=== PATIENT | male | born 1990 | race African-American/Black ===

== ENCOUNTER 2017-02-19 12:58 | Emergency (ER) | payer SELFPAY ==
[~2017-02-19 12:58] MED LIST: Z.0.NO CURRENT MEDS
[2017-02-19 12:59] VITALS: BP 138/85; PULSE 120; RESP 20; TEMP 97.8; O2SAT 99
== END 2017-02-19 14:11 | disposition left against medical advice (07) ==
LOC: NED 12:58
DX: R36.9 Urethral discharge, unspecified (principal); Z53.21 Procedure and treatment not carried out due to patient leaving prior to being seen by health care provider
CPT/HCPCS: 99281

== ENCOUNTER 2017-02-19 15:14 | Emergency (ER) | payer SELFPAY ==
[~2017-02-19] VITALS: Ht 177.8 cm; Wt 87.0 kg
[2017-02-19 15:22] VITALS: BP 120/88; PULSE 116; RESP 18; TEMP 98.9; O2SAT 98
--- NOTE | 2017-02-19 16:32 | PD ---
HPI . Penile discharge Chief Complaint: Complaint Time Seen by Provider: 16:25 Travel History International Travel<30 days: No Contact w/Intl Traveler<30days: No Traveled to known affect area: No History of Present Illness HPI Patient presents with a 2 day history of penile discharge. He describes it as milky. He states that he also has some dysuria. PFSH Past Medical History Medical History: Denies Significant Hx Diminished Hearing: No Influenza Vaccination: No Past Surgical History Surgical History: No Previous Surgery Social History Alcohol Use: No Tobacco Use: Yes (/2 PPD) Substance Use: No Allergies-Medications (Allergen,Severity, Reaction): Coded Allergies: No Known Allergies (Verified , 02/19/17) Reported Meds & Prescriptions Reported Meds & Active Scripts Active No Active Prescriptions or Reported Medications Review of Systems Except as stated in HPI: all other systems reviewed are Neg General / Constitutional: No: Fever, Chills Gastrointestinal: No: Nausea, Vomiting Genitourinary: Positive: Dysuria, Discharge, No: Urgency, Frequency Physical Exam Narrative GENERAL: Awake and alert and in no acute distress. SKIN: Warm and dry. CARDIOVASCULAR: Regular rate and rhythm. RESPIRATORY: No accessory muscle use. MUSCULOSKELETAL: No obvious deformities. No edema. NEUROLOGICAL: Awake and alert. No obvious cranial nerve deficits. Motor grossly within normal limits. Normal speech. PSYCHIATRIC: Appropriate mood and affect; insight and judgment normal. Data Data Last Documented VS Vital Signs Date Time Temp Pulse Resp B/P Pulse Ox O2 Delivery O2 Flow Rate FiO2 02/19/17 15:22 98.9 116 18 120/88 98 MDM Medical Decision Making Medical Screen Exam Complete: Yes Emergency Medical Condition: Yes Differential Diagnosis Differential diagnosis includes but is not limited to UTI, hematuria, yeast infection, STD Narrative Course Patient presents with a milky white penile discharge. He will be treated presumptively for chlamydia and gonorrhea. Diagnosis Primary Impression: Urethritis Patient Instructions: Chlamydia (DC), General Instructions, Gonorrhea (DC) Scripts No Active Prescriptions or Reported Meds Disposition: 01 DISCHARGE HOME Condition: Stable Rea Crystal MD Feb 19, 2017 16:31
[2017-02-19] MEDS ORDERED: AZITHROMYCIN 600 MG TAB PO ONE (16:45)
[2017-02-19] MEDS ORDERED: AZITHROMYCIN 250 MG TAB PO ONE ×2 (16:45)
[2017-02-19] MEDS ORDERED: cefTRIAXone 250 MG VIAL IM ONE (16:45)
[2017-02-19] MEDS ORDERED: LIDOCAINE HCL 1% 50 ML VIAL XX ONE (16:45)
[2017-02-19 22:32] LABS: CHLAMYDIA PCR DETECTED (NOT DETECT); NEISSERIA PCR DETECTED (NOT DETECT)
== END 2017-02-19 17:05 | disposition home or self-care (01) ==
LOC: PHED 15:14
DX: N34.2 Other urethritis (principal)
CPT/HCPCS: 87491; 87591; 96372; 99283; J0696

== ENCOUNTER 2018-04-14 05:37 | Observation (INO) | payer SELFPAY ==
[~2018-04-14] VITALS: Ht 177.8 cm; Wt 112.6 kg
[2018-04-14 05:39] VITALS: BP 155/84; PULSE 79; RESP 20; TEMP 98.1; O2SAT 97
[2018-04-14] MEDS ORDERED: METOCLOPRAMIDE HCL 10 MG/2 ML VIAL IV PUSH ONE (06:00)
[2018-04-14] MEDS ORDERED: SODIUM CHLOR 0.9% 1000 ML INJ 1,000 ML IV ONE (06:00)
[2018-04-14 06:24] LABS: AUTOMATED NEUTROPHIL # 8.3 TH/MM3 (1.8-7.7); BASOPHIL # 0.1 TH/MM3 (0-0.2); BASOPHIL % 0.5 % (0.0-2.0); EOSINOPHIL # 0.1 TH/MM3 (0-0.4); EOSINOPHIL % 0.8 % (0.0-4.0); HEMATOCRIT 46.6 % (39.0-51.0); HEMOGLOBIN 15.7 GM/DL (13.0-17.0); LYMPH % 30.5 % (9.0-44.0); LYMPHOCYTE # 4.1 TH/MM3 (1.0-4.8); MEAN CELL VOLUME 95.1 FL (80.0-100.0); MEAN CORPUSCULAR HGB CONC 33.7 % (32.0-36.0); MEAN PLATELET VOLUME 8.2 FL (7.0-11.0); MONO % 6.9 % (0.0-8.0); MONOCYTE # 0.9 TH/MM3 (0-0.9); NEUT % 61.3 % (16.0-70.0); PLATELET COUNT 291 TH/MM3 (150-450); WHITE BLOOD COUNT 13.6 TH/MM3 (4.0-11.0)
[2018-04-14 06:45] LABS: ALKALINE PHOSPHATASE 94 U/L (45-117); TOTAL BILIRUBIN ADULT 0.7 MG/DL (0.2-1.0); TOTAL PROTEIN 7.6 GM/DL (6.4-8.2)
[2018-04-14 06:48] LABS: ALBUMIN 3.7 GM/DL (3.4-5.0); ALT (GPT) 30 U/L (12-78); AST (GOT) 27 U/L (15-37); BICARBONATE 23.6 MEQ/L (21.0-32.0); BLOOD UREA NITROGEN 8 MG/DL (7-18); CALCIUM 9.1 MG/DL (8.5-10.1); CHLORIDE 104 MEQ/L (98-107); GLOMERULAR FILTRATION RATE 87 ML/MIN (>89); GLUCOSE,RANDOM 109 MG/DL (74-106); SODIUM (NA) 138 MEQ/L (136-145)
[2018-04-14] MEDS ORDERED: IOHEXOL 350 MG/ML 10 ML VIAL (for RAD DIAG) IVCONTRAST ONE (07:30)
--- NOTE | 2018-04-14 07:59 | RADRPT ---
EXAM DATE: 04/14/2018 7:50 AM EDT AGE/SEX: 27 years / Male INDICATIONS: Diffuse abdomen pain today. CLINICAL DATA: This is the patient's initial encounter. Patient reports that signs and symptoms have been present for 1 day and indicates a pain score of 8/10. MEDICAL/SURGICAL HISTORY: None. None. ORAL CONTRAST: No oral contrast ingested. RADIATION DOSE: 16.73 CTDI (mGy) COMPARISON: No prior [place] exams available for comparison. TECHNIQUE: Multiple contiguous axial images were obtained through the abdomen and pelvis following b olus infusion of 97 ml Omnipaque 350 (iohexol) nonionic water-soluble contrast as a single exam dos e. No oral contrast ingested. Using automated exposure control and adjustment of the mA and/or kV ac cording to patient size, the radiation dose was kept as low as reasonably achievable to obtain optima l diagnostic quality images. FINDINGS: Lower Lungs: The visualized lower lungs are clear. Liver: The liver has a homogeneous density. There is a 1.8 cm cyst in the right lobe of the liver adj acent to the gallbladder. The gallbladder is unremarkable.. There is no dilation of the biliary tree. Spleen: Homogeneous density without enlargement. Pancreas: Unremarkable without mass or calcification. Kidneys: Normal in size and shape. No evidence of mass or hydronephrosis. Adrenal Glands: Unremarkable. Aorta: The aorta and proximal iliac vessels are grossly unremarkable without aneurysmal dilation. Bowel/Mesentery: The bowel gas pattern is within normal limits. There is diffuse dilatation of the a ppendix measuring 1.2 cm surrounded by inflammatory changes in the mesenteric fat. There is a 7 mm ca lcified appendicolith in the appendix. No free fluid or loculated fluid collections are seen at this time to suggest an abscess.. No free air is seen at this time. These findings are consistent with acu te appendicitis. Abdominal Wall: Intact. Retroperitoneum: No evidence of adenopathy in the retrocrural, para-aortic, or deep pelvic regions. Bladder: Contours are smooth. Reproductive Organs: No abnormal masses or calcifications seen. Inguinal: The inguinal region is unremarkable without evidence of adenopathy. Bony Structures: Unremarkable. CONCLUSION: 1. Acute appendicitis. 2. 1.8 cm benign-appearing right hepatic cyst. Electronically signed by: Jose Rosas MD 04/14/2018 7:58 AM EDT
--- NOTE | 2018-04-14 08:00 | PD ---
HPI Chief Complaint: Abdominal Pain Time Seen by Provider: 06:08 Travel History International Travel<30 days: No Contact w/Intl Traveler<30days: No Traveled to known affect area: No History of Present Illness HPI 27-year-old male chief complaint of abdominal pain and vomiting. Patient states that his symptoms began yesterday he developed lower abdominal pain and "a little vomiting" When clarified he states that he vomited one time at home and that was several hours prior to his arrival. No prior episodes. No diarrhea. No sick contacts or others at home with similar symptoms. The patient did not attempt any [id number] remedies. After several hours of discomfort he decided to call 911 to be seen in the ER. [facility] Past Medical History Medical History: Denies Significant Hx Diminished Hearing: No Tetanus Vaccination: Never Vaccinated Influenza Vaccination: No Past Surgical History Surgical History: No Previous Surgery Social History Alcohol Use: No Tobacco Use: Yes (11/20 PPD) Substance Use: No Allergies-Medications (Allergen,Severity, Reaction): Coded Allergies: No Known Allergies (Verified , 02/19/17) Reported Meds & Prescriptions Reported Meds & Active Scripts Active No Active Prescriptions or Reported Medications Review of Systems Except as stated in HPI: all other systems reviewed are Neg General / Constitutional: No: Fever, Chills Gastrointestinal: Positive: Nausea, Vomiting, Abdominal Pain, No: Diarrhea Physical Exam Narrative GENERAL: 27-year-old male in mild distress secondary to pain SKIN: Focused skin assessment warm/dry. HEAD: Atraumatic. Normocephalic. EYES: Pupils equal and round. No scleral icterus. No injection or drainage. ENT: No nasal bleeding or discharge. Mucous membranes pink and moist. NECK: Trachea midline. CARDIOVASCULAR: Regular rate and rhythm. No murmur appreciated. RESPIRATORY: No accessory muscle use. Clear to auscultation. Breath sounds equal bilaterally. GASTROINTESTINAL: Nonlocalizing tenderness however he seems to be most tender in the right lower quadrant. MUSCULOSKELETAL: No obvious deformities. No clubbing. No cyanosis. No edema. Data Data Last Documented VS Vital Signs Date Time Temp Pulse Resp B/P (MAP) Pulse Ox O2 Delivery O2 Flow Rate FiO2 04/14/18 05:39 98.1 79 20 155/84 (107) 97 Orders Orders Complete Blood Count With Diff (04/14/18 06:00) Comprehensive Metabolic Panel (04/14/18 06:00) Lipase (04/14/18 06:00) Ct Abd/Pel W Iv Contrast(Rout) (04/14/18 ) Metoclopramide Inj (Reglan Inj) (04/14/18 06:00) Sodium Chlor 0.9% 1000 Ml Inj (Ns 1000 M (04/14/18 06:00) Iohexol 350 Inj (Omnipaque 350 Inj) (04/14/18 07:30) Piperacil-Tazo 3.375 Gm Premix (Zosyn 3. (04/14/18 08:15) Sodium Chlor 0.9% 1000 Ml Inj (Ns 1000 M (04/14/18 08:15) Admit Order (Ed Use Only) (04/14/18 ) Labs Laboratory Tests Test 04/14/18 06:04 White Blood Count 13.6 TH/MM3 Red Blood Count 4.90 MIL/MM3 Hemoglobin 15.7 GM/DL Hematocrit 46.6 % Mean Corpuscular Volume 95.1 FL Mean Corpuscular Hemoglobin 32.0 PG Mean Corpuscular Hemoglobin Concent 33.7 % Red Cell Distribution Width 14.0 % Platelet Count 291 TH/MM3 Mean Platelet Volume 8.2 FL Neutrophils (%) (Auto) 61.3 % Lymphocytes (%) (Auto) 30.5 % Monocytes (%) (Auto) 6.9 % Eosinophils (%) (Auto) 0.8 % Basophils (%) (Auto) 0.5 % Neutrophils # (Auto) 8.3 TH/MM3 Lymphocytes # (Auto) 4.1 TH/MM3 Monocytes # (Auto) 0.9 TH/MM3 Eosinophils # (Auto) 0.1 TH/MM3 Basophils # (Auto) 0.1 TH/MM3 CBC Comment AUTO DIFF Differential Comment AUTO DIFF CONFIRMED Blood Urea Nitrogen 8 MG/DL Creatinine 1.20 MG/DL Random Glucose 109 MG/DL Total Protein 7.6 GM/DL Albumin 3.7 GM/DL Calcium Level 9.1 MG/DL Alkaline Phosphatase 94 U/L Aspartate Amino Transf (AST/SGOT) 27 U/L Alanine Aminotransferase (ALT/SGPT) 30 U/L Total Bilirubin 0.7 MG/DL Sodium Level 138 MEQ/L Potassium Level 4.2 MEQ/L Chloride Level 104 MEQ/L Carbon Dioxide Level 23.6 MEQ/L Anion Gap 10 MEQ/L Estimat Glomerular Filtration Rate 87 ML/MIN Lipase 59 U/L [facility] Medical Decision Making Medical Screen Exam Complete: Yes Emergency Medical Condition: Yes Differential Diagnosis Appendicitis, cholecystitis, pancreatitis, ileus, bowel obstruction Narrative Course Patient was seen and evaluated in the emergency department.. He was found to have an acute appendicitis. Patient was signed out at shift change awaiting admission by surgery. Diagnosis Primary Impression: Acute appendicitis Qualified Codes: K35.3 - Acute appendicitis with localized peritonitis Admitting Information Admitting Physician Requests: Admit Scripts No Active Prescriptions or Reported Meds Condition: Stable Christiano Charles DO April 14, 2018 08:00
[2018-04-14] MEDS: SODIUM CHLOR 0.9% 1000 ML INJ 1,000 ML IV SCH ×2 (08:15→17:33)
[2018-04-14] MEDS ORDERED: PIPERACIL-TAZO 3.375 GM PREMIX 50 ML IV ONE (08:15)
--- NOTE | 2018-04-14 08:27 | PD ---
Physical Exam Narrative Patient signed out to me by Dr. Bartlett. Please see his documentation for complete details. Briefly, patient is a 27-year-old male who comes in complaining of abdominal pain that started yesterday. He says the pain is in his right lower quadrant. He did have an episode of vomiting here, and once at home. Exam shows diffuse tenderness to the abdomen, worse in the right lower quadrant. There is no rebound or guarding. Data Data Last Documented VS Vital Signs Date Time Temp Pulse Resp B/P (MAP) Pulse Ox O2 Delivery O2 Flow Rate FiO2 04/14/18 05:39 98.1 79 20 155/84 (107) 97 Orders Orders Complete Blood Count With Diff (04/14/18 06:00) Comprehensive Metabolic Panel (04/14/18 06:00) Lipase (04/14/18 06:00) Ct Abd/Pel W Iv Contrast(Rout) (04/14/18 ) Metoclopramide Inj (Reglan Inj) (04/14/18 06:00) Sodium Chlor 0.9% 1000 Ml Inj (Ns 1000 M (04/14/18 06:00) Iohexol 350 Inj (Omnipaque 350 Inj) (04/14/18 07:30) Piperacil-Tazo 3.375 Gm Premix (Zosyn 3. (04/14/18 08:15) Sodium Chlor 0.9% 1000 Ml Inj (Ns 1000 M (04/14/18 08:15) Admit Order (Ed Use Only) (04/14/18 ) Labs Laboratory Tests Test 04/14/18 06:04 White Blood Count 13.6 TH/MM3 Red Blood Count 4.90 MIL/MM3 Hemoglobin 15.7 GM/DL Hematocrit 46.6 % Mean Corpuscular Volume 95.1 FL Mean Corpuscular Hemoglobin 32.0 PG Mean Corpuscular Hemoglobin Concent 33.7 % Red Cell Distribution Width 14.0 % Platelet Count 291 TH/MM3 Mean Platelet Volume 8.2 FL Neutrophils (%) (Auto) 61.3 % Lymphocytes (%) (Auto) 30.5 % Monocytes (%) (Auto) 6.9 % Eosinophils (%) (Auto) 0.8 % Basophils (%) (Auto) 0.5 % Neutrophils # (Auto) 8.3 TH/MM3 Lymphocytes # (Auto) 4.1 TH/MM3 Monocytes # (Auto) 0.9 TH/MM3 Eosinophils # (Auto) 0.1 TH/MM3 Basophils # (Auto) 0.1 TH/MM3 CBC Comment AUTO DIFF Differential Comment AUTO DIFF CONFIRMED Blood Urea Nitrogen 8 MG/DL Creatinine 1.20 MG/DL Random Glucose 109 MG/DL Total Protein 7.6 GM/DL Albumin 3.7 GM/DL Calcium Level 9.1 MG/DL Alkaline Phosphatase 94 U/L Aspartate Amino Transf (AST/SGOT) 27 U/L Alanine Aminotransferase (ALT/SGPT) 30 U/L Total Bilirubin 0.7 MG/DL Sodium Level 138 MEQ/L Potassium Level 4.2 MEQ/L Chloride Level 104 MEQ/L Carbon Dioxide Level 23.6 MEQ/L Anion Gap 10 MEQ/L Estimat Glomerular Filtration Rate 87 ML/MIN Lipase 59 U/L MDM Supervised Visit with KATHY: No Narrative Course CT of the abdomen pelvis shows acute appendicitis. Patient was given Reglan and Zosyn. Dr. Wen of general surgery called, he will take the patient to the OR. Diagnosis Primary Impression: Appendicitis Qualified Codes: K35.80 - Unspecified acute appendicitis Admitting Information Admitting Physician Requests: Admit Scripts No Active Prescriptions or Reported Meds Ashleigh Rosenberg MD April 14, 2018 08:27
[2018-04-14 08:36] VITALS: BP 145/81; PULSE 83; RESP 18; TEMP 99.3; O2SAT 98
[2018-04-14] MEDS ORDERED: BUPIVACAINE/EPINEPHRINE 0.5% PF 10 ML VIAL ONE (08:45)
[2018-04-14] MEDS ORDERED: ACETAMINOPHEN 1000 MG/100 ML 100 ML IV ONE (09:08)
[2018-04-14] MEDS ORDERED: KETOROLAC TROMETHAMINE 30 MG/ML (IVP) VIAL IVP PRN (10:45)
[2018-04-14] MEDS ORDERED: Post-op Orders (for Pharmacy) XX ONE (10:45)
[2018-04-14] MEDS ORDERED: ONDANSETRON ODT 4 MG TAB PO PRN (10:45)
[2018-04-14] MEDS ORDERED: oxyCODONE/ACETAMINOPHEN 5 MG/325 MG TAB PO PRN (10:45)
[2018-04-14] MEDS ORDERED: MORPHINE SULFATE 4 MG/ML INJ IV PUSH PRN (10:45)
[2018-04-14] MEDS ORDERED: NALOXONE HCL 0.4 MG/ML AMP IV PUSH PRN (10:45)
[2018-04-14] MEDS ORDERED: diphenhydrAMINE HCL 25 MG CAP PO PRN (10:45)
[2018-04-14] MEDS ORDERED: DO NOT ADM ANY ANTICOAGULANT DRUGS PRN (10:51)
[2018-04-14] MEDS: LACTATED RINGER'S 1000 ML INJ 1,000 ML IV SCH ×2 (10:55→17:29)
[2018-04-14] MEDS ORDERED: MIDAZOLAM HCL 2 MG/2 ML VIAL ONE (10:56)
--- NOTE | 2018-04-14 10:57 | MH ---
cc: Rangel Wen MD DATE OF ADMISSION: 04/14/2018 REASON FOR ADMISSION: Appendicitis. HISTORY OF PRESENT ILLNESS: Mr. Lam is a pleasant 27-year-old gentleman, who presented to the emergency department early this morning complaining of right lower quadrant abdominal pain. He states it began yesterday. He had an episode of nausea and vomiting with it. He denied any fever or chills. Pain was mainly in the right lower quadrant. He apparently decided to call 911 and was brought to the emergency department where he was seen, evaluated and worked up. During his workup and evaluation, he was found to have acute appendicitis by history, physical exam, and CT imaging. Surgical consultation was requested. The patient denies previous episodes. The patient denies any chest pain or shortness of breath. The patient reports pain is mainly in the right lower quadrant and is made worse by movement. He denies any subjective fever or chills. PAST MEDICAL HISTORY: None. PAST SURGICAL HISTORY: None. MEDICATIONS: None. ALLERGIES: NONE. SOCIAL HISTORY: He admits to alcohol and cigarette use. FAMILY HISTORY: He denies any family history of appendicitis that he is aware of. REVIEW OF SYSTEMS: Please see HPI. PHYSICAL EXAMINATION: VITAL SIGNS: Temperature is 98, pulse is 80, blood pressure 150/80, respiration rate 20. GENERAL: This is an obese, gentleman, sitting in the hospital bed, appears uncomfortable. HEENT: Pupils equal and reactive to light. Sclerae are white. Oropharynx is clear and moist. NECK: Supple. No masses. LUNGS: Clear to auscultation bilaterally. HEART: S1, S2. No murmur. ABDOMEN: Soft, tender in the right lower quadrant with rebound and guarding. Positive Rovsing sign. Positive psoas sign. EXTREMITIES: Free range of motion x 4. NEUROLOGIC: Alert and oriented x 3. LABORATORY DATA: White blood cell count 13, hemoglobin 15, platelet count is 291. Electrolytes within normal limits. IMAGING STUDIES: CT imaging of the abdomen and pelvis reveals an inflamed retrocecal appendix. IMPRESSION: Acute appendicitis. PLAN: Risks and benefits of immediate appendectomy were discussed with the patient and he is agreeable. Operating room was notified and will ____ ____ him immediately. Rangel MD CHIRAG Waller , 10:40 AM , 10:56 AM
--- NOTE | 2018-04-14 11:05 | MP ---
cc: Rangel Wen MD DATE OF OPERATION: PREOPERATIVE DIAGNOSIS: Acute appendicitis. POSTOPERATIVE DIAGNOSIS: 1. Acute appendicitis. 2. Retrocecal appendix. PROCEDURE PERFORMED: Laparoscopic appendectomy. SURGEON: Rangel Wen MD BACK END DEVELOPER: Janet Hawkins. ANESTHESIA: General endotracheal. COMPLICATIONS: None. INDICATIONS FOR PROCEDURE: Mr. Lam is a pleasant 27-year-old gentleman who presented to the Emergency Department this morning complaining of abdominal pain. He was worked up and found to have appendicitis. Risks and benefits of appendectomy was discussed with him. He is agreeable. DETAILS OF PROCEDURE: The patient was identified, brought to the operating room, placed supine on the operating table. After adequate general endotracheal anesthesia was achieved, the abdomen was prepped and draped in standard surgical fashion. Supraumbilical space was anesthetized with 0.25% Marcaine. Supraumbilical incision was made. Dissection was carried down through subcutaneous tissue to midline fascia. Midline fascia was incised sharply. A finger was then placed in the peritoneal cavity without difficulty. Blunt balloon trocar was inserted, and the abdomen was insufflated to 15 mmHg using CO2 gas. Next, two 5 mm trocars were placed in the lower midline under direct vision. Attention was directed to the right lower quadrant. Appendix was not easily seen. Obviously, the appendix was completely retrocecal. There was a small amount of green fluid down the pelvis, which was suction irrigated out prior to mobilization of the cecum. Attention was directed to the cecum which was grasped. The white line of Toldt was then taken down with Harmonic scalpel rotating the cecum medially and superiorly. Once we did this, we could visualize the appendix. Next, the appendix was carefully dissected out using a combination of blunt hydrodissection and limited Harmonic scalpel dissection. We had to take the appendix down in a retrograde manner. The mesentery was taken down with Harmonic scalpel and then we followed the appendix distally. The appendix was quite inflamed and it was densely adherent to the tissue in the retroperitoneum. Again, using blunt and hydrodissection and limited Harmonic scalpel, we were able to free the appendix up completely. This did take a prolonged amount of time due to the fact that it was very stuck and very inflamed. There was no evidence of gross perforation or abscess. Once we freed the appendix up completely, it was ligated at the base of the cecum using 2-0 PDS Endoloops both proximally and distally. The appendix was then transected, placed into an Endopouch bag and brought out through the supraumbilical port. The appendix was sent to pathology for analysis. Attention was redirected. Posterior surface of the cecum was carefully inspected and there was no evidence of any cecal injury. The appendiceal stump was carefully inspected and the Endoloop tested and there was no evidence of leakage of stool. No bleeding. The abdominal cavity was then rinsed out with 1 liter of warm saline solution. The cecum was returned to its anatomic position in the right lower quadrant. The pelvis was irrigated out as well. Effluent was noted to be clear. All trocars were then removed under direct vision. Midline fascia was repaired with 0 Vicryl in a [id number] fashion. Skin was closed with 4-0 Vicryl. The patient tolerated the procedure well, was awakened and brought to the recovery room in stable condition. MD NAYLA Clinton/LETICIA , 10:43 AM , 11:04 AM
[2018-04-14 12:00] VITALS: BP 105/57; PULSE 66; RESP 17; TEMP 98; O2SAT 98
[2018-04-14] MEDS ORDERED: DEXAMETHASONE SOD PHOS 4 MG/ML VIAL IV ONE (12:02)
[2018-04-14] MEDS ORDERED: PROPOFOL 200 MG/20 ML AMP IV ONE (12:02)
[2018-04-14] MEDS ORDERED: ROCURONIUM INJ 50 MG/5 ML SYRINGE IV PUSH ONE (12:02)
[2018-04-14] MEDS ORDERED: SUCCINYLCHOLINE CHLORIDE 100 MG/5 ML SYRINGE IV PUSH ONE (12:02)
[2018-04-14] MEDS ORDERED: NEOSTIGMINE 5 MG/5 ML SYRINGE IV PUSH ONE (12:02)
[2018-04-14] MEDS ORDERED: GLYCOPYRROLATE 1 MG/5 ML SYRINGE IV PUSH ONE (12:02)
[2018-04-14] MEDS ORDERED: LACTATED RINGER'S 1000 ML INJ 2,000 ML IV ONE (12:02)
[2018-04-14] MEDS ORDERED: ONDANSETRON HCL 4 MG/2 ML VIAL IV PUSH ONE (12:02)
[2018-04-14] MEDS ORDERED: LIDOCAINE HCL 1% PF 5 ML SYRINGE OTHER ONE (12:02)
[2018-04-14] MEDS ORDERED: KETOROLAC TROMETHAMINE 30 MG/ML (IVP) VIAL IV PUSH ONE (12:02)
[2018-04-14 16:00] VITALS: BP 114/61; PULSE 66; RESP 18; TEMP 97.8; O2SAT 100
[2018-04-14 20:00] VITALS: BP 121/66; PULSE 78; RESP 19; TEMP 98.6; O2SAT 100
[2018-04-14] MEDS: oxyCODONE/ACETAMINOPHEN 5 MG/325 MG TAB PO PRN (20:13)
[2018-04-14 21:37] VITALS: O2SAT 95
[2018-04-15] VITALS: BP 125/67; PULSE 74; RESP 17; TEMP 98.6; O2SAT 100
[2018-04-15] MEDS: SODIUM CHLOR 0.9% 1000 ML INJ 1,000 ML IV SCH (04:15)
[2018-04-15] MEDS: oxyCODONE/ACETAMINOPHEN 5 MG/325 MG TAB PO PRN (05:52)
[2018-04-15] MEDS: LACTATED RINGER'S 1000 ML INJ 1,000 ML IV SCH (06:35)
[2018-04-15 08:00] VITALS: BP 136/86; PULSE 69; RESP 17; TEMP 98.3; O2SAT 95
--- NOTE | 2018-04-15 08:21 | HHI.PR ---
Subjective Subjective Notes sore, tolerating po, no N/V, no fevers Objective Vitals/I&O Vital Signs Date Time Temp Pulse Resp B/P (MAP) Pulse Ox O2 Delivery O2 Flow Rate FiO2 04/15/18 08:00 98.3 69 17 136/86 (103) 95 04/14/18 21:37 21 04/14/18 11:45 Nasal Cannula 2 Abdomen: Non-distended, Post-op tenderness, BS normal Wound Wound : Wound Location: Abdomen Appearance: Clean & Dry A/P Assessment and Plan POD1 lap appy DC home FU 1 week Rx on chart Rangel Wen MD April 15, 2018 08:21
[2018-04-15 08:46] VITALS: O2SAT 95
[2018-04-15] MEDS ORDERED: OXYC1TAB63 PO (09:11)
== END 2018-04-15 12:03 | disposition home or self-care (01) ==
LOC: NEPC 05:37 → NEDA 08:25 → INTOOBSV 08:25 → N07B 12:27
PROVIDERS: ADMIT Surgery Trauma Surgery; ATTEND Surgery Trauma Surgery
DX: K35.3 Acute appendicitis with localized peritonitis (principal); F17.210 Nicotine dependence, cigarettes, uncomplicated; R10.31 Right lower quadrant pain
CPT/HCPCS: 00840; 44970; 74177; 80053; 83690; 85025; 88304; 94150; 96361; 96365; 96366; 96375; 99285; G0378; J0131; J0330; J1100; J1885; J2250; J2270; J2405; J2543; J2710; J2765; J3010; J7030; J7120; Q9967